=== PATIENT | male | born 1995 | race Caucasian/White ===

== ENCOUNTER 2021-01-04 16:36 | Inpatient (IN) | payer MEDICAID ==
[~2021-01-04] VITALS: Ht 182.9 cm; Wt 106.1 kg
[2021-01-04] MEDS ORDERED: CARVEDILOL (16:42)
[2021-01-04] MEDS ORDERED: DEPAKOTE (16:42)
[2021-01-04] MEDS ORDERED: METFORMIN (16:42)
[2021-01-04] MEDS ORDERED: DOCUSATE (16:42)
[2021-01-04 17:34] LABS: BASOPHILS % 0.7 % (0.0-2.0); EOSINOPHILS % 1.8 % (0.0-5.0); HEMOGLOBIN. 12.3 g/dL (14.0-18.0); LYMPHOCYTES % 16.6 % (20.0-50.0); MEAN CORPUSCULAR HEMOGLOBIN 29.5 pg (28.0-32.0); MEAN CORPUSCULAR VOLUME 88.7 fL (80.0-94.0); MEAN PLATELET VOLUME 7.9 fl (7.4-10.4); MONOCYTES % 10.7 % (2.0-8.0); NEUTROPHILS % 70.2 % (40.0-76.0); PLATELET 248 x1000/uL (130-400); RED BLOOD CELL COUNT 4.17 mill/uL (4.7-6.1); RED CELL DISTRIBUTION WIDTH 15.4 % (11.6-14.6)
[2021-01-04 17:43] LABS: CHLORIDE 103 mEq/L (98-107)
[2021-01-04] MEDS ORDERED: PIPERACILLIN/TAZ 3.375G PREMIX 50 ML IV NR (18:26)
[2021-01-04] MEDS ORDERED: SODIUM CHLORIDE 0.9% 500 ML IV ONE (18:30)
[2021-01-04] MEDS ORDERED: PIPERACILLIN/TAZOBACTAM 3.375GM/50ML PREMIX IV ONE (18:30)
[2021-01-04] MEDS ORDERED: VANCOMYCIN 1 G PREMIX 200 ML IV SCH (18:30)
[2021-01-04 20:43] LABS: CLARITY URINE CLEAR (CLEAR); COLOR URINE DARK YELLOW (YELLOW); KETONES URINE NEGATIVE (NEGATIVE); LEUKOCYTE ESTERASE URINE TRACE (NEGATIVE); NITRITE URINE NEGATIVE (NEGATIVE); OCCULT BLOOD URINE NEGATIVE (NEGATIVE); PROTEIN URINE NEGATIVE (NEGATIVE); SPECIFIC GRAVITY URINE 1.023 (1.005-1.030)
[2021-01-04] MEDS ORDERED: IOHEXOL-300 100 ML BOTTLE ONE (23:26)
[2021-01-05 02:00] VITALS: BP_SYST 104; BP_SYST 182; BP_DIAS 68; BP_DIAS 80
[2021-01-05] MEDS ORDERED: CHOL100046 PO (02:11)
[2021-01-05] MEDS ORDERED: QUET50TA21 PO (02:11)
[2021-01-05] MEDS ORDERED: CARV3.1242 PO (02:11)
[2021-01-05] MEDS ORDERED: TRAZ-251 PO (02:11)
[2021-01-05] MEDS ORDERED: METF-416 PO (02:11)
[2021-01-05] MEDS ORDERED: PROP10TA10 PO (02:11)
[2021-01-05] MEDS ORDERED: SPIR25TA6 PO (02:11)
[2021-01-05] MEDS ORDERED: DIVA125C2 PO (02:11)
[2021-01-05] MEDS ORDERED: LIP40 (02:11)
[2021-01-05] MEDS ORDERED: FURO40TA5 PO (02:11)
[2021-01-05] MEDS ORDERED: SENN8.6T21 (02:11)
[2021-01-05] MEDS ORDERED: DOCU-150 PO (02:11)
[2021-01-05] MEDS ORDERED: OXCA300T31 MT (02:12)
[2021-01-05] MEDS ORDERED: ACETAMINOPHEN 650MG/20.3ML UDC PO PRN (03:00)
[2021-01-05] MEDS ORDERED: HYDROCODONE/ACETAMINOPHEN 5/325MG TABLET PO PRN (03:00)
[2021-01-05 04:00] VITALS: BP 95/65
[2021-01-05] MEDS ORDERED: DEXTROSE 50% WATER 50ML SYRINGE IV PRN (04:30)
[2021-01-05] MEDS: METFORMIN HCL 500MG TABLET PO SCH ×2 (05:56→18:18)
[2021-01-05] MEDS: INSULIN LISPRO 100 UNITS/ML SUBCUT SCH ×4 (06:25→20:27)
[2021-01-05] MEDS: BLOOD SUGAR DIAGNOSTIC STRIP TEST SCH ×4 (06:25→21:56)
[2021-01-05 06:29] LABS: BASOPHILS % 0.6 % (0.0-2.0); EOSINOPHILS % 1.8 % (0.0-5.0); HEMATOCRIT. 37.9 % (42.0-52.0); HEMOGLOBIN. 12.6 g/dL (14.0-18.0); LYMPHOCYTES % 20.3 % (20.0-50.0); MEAN CORPUSCULAR HEMOGLOBIN 29.6 pg (28.0-32.0); MEAN PLATELET VOLUME 7.6 fl (7.4-10.4); MONOCYTES % 9.9 % (2.0-8.0); NEUTROPHILS % 67.4 % (40.0-76.0); PLATELET 217 x1000/uL (130-400); RED BLOOD CELL COUNT 4.26 mill/uL (4.7-6.1); RED CELL DISTRIBUTION WIDTH 15.2 % (11.6-14.6)
[2021-01-05 06:34] LABS: CHLORIDE 103 mEq/L (98-107)
[2021-01-05 06:43] LABS: LDL CHOLESTEROL 42 mg/dL (5-100)
[2021-01-05 06:45] LABS: HDL CHOLESTEROL 20 mg/dL (40-59)
[2021-01-05 08:00] VITALS: BP 123/84
[2021-01-05] MEDS: PROPRANOLOL HCL 10MG TABLET PO SCH ×3 (08:43→18:18)
[2021-01-05] MEDS: OXCARBAZEPINE 300MG TABLET PO SCH ×2 (08:43→21:26)
[2021-01-05] MEDS: SPIRONOLACTONE 25MG TABLET PO SCH (08:43)
[2021-01-05] MEDS: DOCUSATE SODIUM 100MG CAPSULE PO SCH ×2 (08:44→18:18)
[2021-01-05] MEDS: CARVEDILOL 3.125 MG TABLET PO SCH ×2 (08:44→21:27)
[2021-01-05] MEDS: CHOLECALCIFEROL (D3) 1000 UNIT TABLET PO SCH (08:44)
[2021-01-05] MEDS: QUETIAPINE FUMARATE 50MG TABLET PO SCH ×2 (08:45→21:27)
[2021-01-05] MEDS ORDERED: DIVALPROEX SODIUM 250MG DR TABLET PO SCH (09:00)
[2021-01-05] MEDS ORDERED: FUROSEMIDE 40MG/4ML VIAL IVP SCH (09:00)
[2021-01-05 12:00] VITALS: BP 106/68
[2021-01-05] MEDS ORDERED: QUETIAPINE FUMARATE 50MG TABLET PO SCH (12:00)
[2021-01-05 16:00] VITALS: BP 114/76
[2021-01-05] MEDS ORDERED: AZITHROMYCIN 500 MG TABLET PO NR (16:00)
[2021-01-05] MEDS ORDERED: CEFTRIAXONE 1 G PREMIX 50 ML IV SCH (16:00)
[2021-01-05] MEDS: CEFTRIAXONE 1,000 MG in DEXTROSE 5% WATER 50 ML IV SCH (19:11)
[2021-01-05 20:00] VITALS: BP 111/78
[2021-01-05] MEDS: ATORVASTATIN CALCIUM 40MG TABLET PO SCH (21:25)
[2021-01-05] MEDS: TRAZODONE HCL 50MG TABLET PO SCH (21:26)
[2021-01-05] MEDS: DIVALPROEX SODIUM 250MG DR TABLET PO SCH (21:27)
[2021-01-06 04:00] VITALS: BP 102/68
[2021-01-06] MEDS: BLOOD SUGAR DIAGNOSTIC STRIP TEST SCH ×4 (06:35→21:06)
[2021-01-06] MEDS: METFORMIN HCL 500MG TABLET PO SCH ×2 (06:43→17:51)
[2021-01-06] MEDS: INSULIN LISPRO 100 UNITS/ML SUBCUT SCH ×4 (06:45→21:00)
[2021-01-06 08:00] VITALS: BP 100/79
[2021-01-06] MEDS: PROPRANOLOL HCL 10MG TABLET PO SCH ×3 (09:00→17:52)
[2021-01-06] MEDS: CARVEDILOL 3.125 MG TABLET PO SCH ×2 (09:00→21:00)
[2021-01-06] MEDS: DIVALPROEX SODIUM 250MG DR TABLET PO SCH ×2 (09:37→21:08)
[2021-01-06] MEDS: CHOLECALCIFEROL (D3) 1000 UNIT TABLET PO SCH (09:38)
[2021-01-06] MEDS: SPIRONOLACTONE 25MG TABLET PO SCH (09:38)
[2021-01-06] MEDS: QUETIAPINE FUMARATE 50MG TABLET PO SCH (09:38)
[2021-01-06] MEDS: DOCUSATE SODIUM 100MG CAPSULE PO SCH ×2 (09:38→17:52)
[2021-01-06] MEDS: AZITHROMYCIN 250 MG TABLET PO SCH (09:38)
[2021-01-06] MEDS: OXCARBAZEPINE 300MG TABLET PO SCH ×2 (09:39→21:07)
[2021-01-06] MEDS ORDERED: LACTULOSE 20G/30ML UDC PO NR (10:15)
[2021-01-06] MEDS ORDERED: ONDANSETRON HCL 4MG/2ML INJ IV PRN (10:30)
[2021-01-06 12:00] VITALS: BP 109/81
[2021-01-06 16:00] VITALS: BP 114/82
[2021-01-06] MEDS: CEFTRIAXONE 1,000 MG in DEXTROSE 5% WATER 50 ML IV SCH (17:51)
[2021-01-06] MEDS: FUROSEMIDE 40MG TABLET PO SCH (17:52)
[2021-01-06 20:00] VITALS: BP 103/75
[2021-01-06] MEDS: TRAZODONE HCL 50MG TABLET PO SCH (21:07)
[2021-01-06] MEDS: RIFAXIMIN 550 MG TABLET PO SCH (21:07)
[2021-01-06] MEDS: LACTULOSE 20G/30ML UDC PO SCH (21:08)
[2021-01-06] MEDS: ATORVASTATIN CALCIUM 40MG TABLET PO SCH (21:08)
[2021-01-07] VITALS: BP 105/72
[2021-01-07 04:00] VITALS: BP 94/58
[2021-01-07] MEDS: LACTULOSE 20G/30ML UDC PO SCH ×3 (05:51→22:00)
[2021-01-07] MEDS: BLOOD SUGAR DIAGNOSTIC STRIP TEST SCH ×4 (05:59→21:00)
[2021-01-07 06:12] LABS: BASOPHILS % 0.6 % (0.0-2.0); EOSINOPHILS % 3.4 % (0.0-5.0); HEMATOCRIT. 37.2 % (42.0-52.0); HEMOGLOBIN. 12.2 g/dL (14.0-18.0); LYMPHOCYTES % 24.7 % (20.0-50.0); MEAN CORPUSCULAR HEMOGLOBIN 29.3 pg (28.0-32.0); MEAN CORPUSCULAR VOLUME 89.4 fL (80.0-94.0); MEAN PLATELET VOLUME 7.8 fl (7.4-10.4); MONOCYTES % 9.7 % (2.0-8.0); NEUTROPHILS % 61.6 % (40.0-76.0); PLATELET 218 x1000/uL (130-400); RED BLOOD CELL COUNT 4.16 mill/uL (4.7-6.1); RED CELL DISTRIBUTION WIDTH 15.6 % (11.6-14.6)
[2021-01-07 06:13] LABS: CHLORIDE 104 mEq/L (98-107)
[2021-01-07] MEDS: INSULIN LISPRO 100 UNITS/ML SUBCUT SCH ×4 (06:13→21:00)
[2021-01-07 08:00] VITALS: BP 105/63
[2021-01-07] MEDS: RIFAXIMIN 550 MG TABLET PO SCH ×2 (08:49→22:01)
[2021-01-07] MEDS: METFORMIN HCL 500MG TABLET PO SCH ×2 (08:49→17:51)
[2021-01-07] MEDS: DIVALPROEX SODIUM 250MG DR TABLET PO SCH ×2 (08:50→22:01)
[2021-01-07] MEDS: SPIRONOLACTONE 25MG TABLET PO SCH (08:50)
[2021-01-07] MEDS: DOCUSATE SODIUM 100MG CAPSULE PO SCH ×2 (08:50→17:51)
[2021-01-07] MEDS: CARVEDILOL 3.125 MG TABLET PO SCH ×2 (08:51→21:00)
[2021-01-07] MEDS: PROPRANOLOL HCL 10MG TABLET PO SCH ×3 (08:51→17:51)
[2021-01-07] MEDS: FUROSEMIDE 40MG TABLET PO SCH (08:51)
[2021-01-07] MEDS: OXCARBAZEPINE 300MG TABLET PO SCH ×2 (08:51→22:01)
[2021-01-07] MEDS: CHOLECALCIFEROL (D3) 1000 UNIT TABLET PO SCH (08:51)
[2021-01-07] MEDS: AZITHROMYCIN 250 MG TABLET PO SCH (08:54)
[2021-01-07 10:58] LABS: HEPATITIS B SURFACE ANTIGEN NEGATIVE
[2021-01-07 11:28] LABS: HEPATITIS A AB IGM NEGATIVE (NEGATIVE)
[2021-01-07 12:00] VITALS: BP 102/66
[2021-01-07] MEDS ORDERED: LEVO500T89 MT (13:09)
[2021-01-07] MEDS ORDERED: LACT10SO3 MT (13:09)
[2021-01-07 16:00] VITALS: BP 114/76
[2021-01-07] MEDS: CEFTRIAXONE 1,000 MG in DEXTROSE 5% WATER 50 ML IV SCH (18:29)
[2021-01-07 20:00] VITALS: BP 98/70
[2021-01-07] MEDS: TRAZODONE HCL 50MG TABLET PO SCH (22:00)
[2021-01-07] MEDS: ATORVASTATIN CALCIUM 40MG TABLET PO SCH (22:01)
[2021-01-08] VITALS: BP 102/76
[2021-01-08 04:00] VITALS: BP 93/72
[2021-01-08] MEDS: BLOOD SUGAR DIAGNOSTIC STRIP TEST SCH (06:42)
[2021-01-08] MEDS: INSULIN LISPRO 100 UNITS/ML SUBCUT SCH (06:43)
[2021-01-08] MEDS: LACTULOSE 20G/30ML UDC PO SCH (06:47)
[2021-01-08] MEDS: METFORMIN HCL 500MG TABLET PO SCH (06:47)
[2021-01-08 08:00] VITALS: BP 99/71
[2021-01-08 09:10] VITALS: BP 99/50
== END 2021-01-08 09:40 | disposition home or self-care (01) | DRG 139 ==
LOC: ER 16:36 → EDBD 16:36 → MICUSO 19:59 → 7EST 01-05 00:22
PROVIDERS: ADMIT Internal Medicine; ATTEND Internal Medicine
DX: J18.9 Pneumonia, unspecified organism (principal); I50.23 Acute on chronic systolic (congestive) heart failure; E87.2 Acidosis; I27.20 Pulmonary hypertension, unspecified; E72.20 Disorder of urea cycle metabolism, unspecified; I42.9 Cardiomyopathy, unspecified; E83.51 Hypocalcemia; R16.2 Hepatomegaly with splenomegaly, not elsewhere classified; R74.01 Elevation of levels of liver transaminase levels; F84.0 Autistic disorder; G40.909 Epilepsy, unspecified, not intractable, without status epilepticus; G47.33 Obstructive sleep apnea (adult) (pediatric); Z68.31 Body mass index [BMI] 31.0-31.9, adult; K76.0 Fatty (change of) liver, not elsewhere classified; K59.00 Constipation, unspecified; I08.1 Rheumatic disorders of both mitral and tricuspid valves; E66.01 Morbid (severe) obesity due to excess calories; E11.9 Type 2 diabetes mellitus without complications; K75.9 Inflammatory liver disease, unspecified; R18.8 Other ascites
CPT/HCPCS: 36415; 71045; 74177; 76604; 76700; 80048; 80053; 80061; 80076; 81003; 82140; 82962; 83036; 83605; 83880; 84484; 85025; 86705; 86709; 86803; 87340; 93005; 93306; 93970; 97161; 99291; J0696; J1940; J2405; J2543; J3370; J7040; J7060; Q9967